=== PATIENT | male | born 1970 | race Caucasian/White ===

== ENCOUNTER 2016-05-26 16:19 | Emergency (ER) | payer OTHER ==
[~2016-05-26] VITALS: Ht 167.6 cm; Wt 86.0 kg
[~2016-05-26 16:19] MED LIST: ASPI81TA3 PO; PANT40TA4 PO; PHEN-538 PO
[2016-05-26 16:23] VITALS: Ht 167.6 cm; Wt 86.0 kg
[2016-05-26] MEDS ORDERED: SOD CHLORIDE 0.9% 1,000 ML IV STA (16:37)
[2016-05-26] MEDS ORDERED: morphine 2 MG INJ IV ONE (17:00)
[2016-05-26] MEDS ORDERED: ONDANSETRON 4 MG INJ IV STA (17:01)
[2016-05-26 17:05] LABS: BASOPHILS % 0.3 % (0.0-2.0); EOSINOPHILS % 0.3 % (0.0-7.0); HEMATOCRIT 44.3 % (42.0-52.0); HEMOGLOBIN 15.3 g/dl (14.0-18.0); LYMPHOCYTES # 1.3 10^3/ul (0.8-2.9); LYMPHOCYTES % 10.4 % (15.0-51.0); MEAN CORPUSCULAR HEMOGLOBIN 29.8 pg (29.0-33.0); MEAN CORPUSCULAR HGB CONC 34.5 g/dl (32.0-37.0); MEAN CORPUSCULAR VOLUME 86.3 fl (82.0-101.0); MEAN PLATELET VOLUME 7.2 fl (7.4-10.4); MONOCYTE # 0.6 10^3/ul (0.3-0.9); MONOCYTES % 4.8 % (0.0-11.0); NEUTROPHIL # 10.3 10^3/ul (1.6-7.5); NEUTROPHILS % 84.2 % (39.0-77.0); PLATELET COUNT 229 10^3/UL (140-440); RED BLOOD COUNT 5.13 10^6/ul (4.70-6.10); RED CELL DISTRIBUTION WIDTH 12.8 % (11.5-14.5); UNCORRECTED WBC 12.3 10^3/ul (4.8-10.8); WHITE BLOOD COUNT 12.3 10^3/ul (4.8-10.8)
[2016-05-26] MEDS ORDERED: ALPR0.5T6 PO (17:05)
[2016-05-26 17:12] LABS: CONDITION 1
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
--- NOTE | 2016-05-26 17:16 | RADRPT ---
PROCEDURE: XR left shoulder. CLINICAL INDICATION: Trauma TECHNIQUE: 3 views of the right shoulder were performed. COMPARISON: None. FINDINGS: No fracture or dislocation is seen. No lytic or blastic bony lesion is seen. No significant degene rative change. No definite soft tissue abnormality. IMPRESSION: No definite acute fracture or dislocation. RPTAT: HLBE Subha Mujica Physician Date Time Electronically viewed and signed by Subha Mujica Physician on 05/26/2016 17:15 LE/
--- NOTE | 2016-05-26 17:33 | RADRPT ---
PROCEDURE: CT Head without. CLINICAL INDICATION: Trauma. TECHNIQUE: The study was performed utilizing a multi-slice, multidetector CT scanner. Direct spira l 1 mm axial sections were obtained through the head without the use of intravenous contrast materia l. Coronal and sagittal reformations were obtained. The images were reviewed on a PACS workstation. RADIATION DOSE: CTDIvol: 44.4 mGyDLP: 720.2 mGy-cm COMPARISON: No prior studies are available for comparison. FINDINGS: There is no intracranial hemorrhage, extra-axial fluid collection, mass lesion, midline shift or hyd rocephalus. The ventricles, sulci and cisterns are within normal limits. The white matter is unrem arkable. The mullen-white matter differentiation is preserved. The basal cisterns are patent. The m idline structures are intact. The orbits, calvarium and extracranial soft tissues are normal in liz earance. The visualized paranasal sinuses, mastoid air cells and middle ear cavities are normally ae rated. There is mild prominence of the cisterna magna, normal variant. No definite arachnoid cyst i s seen. There is pneumatization bilateral petrous apices without evidence inflammatory changes, nor mal variant. IMPRESSION: 1. No acute intracranial abnormality. No intracranial hemorrhage, extra-axial fluid collection, ma ss lesion or hydrocephalous. RPTAT: DD .Thong Schultz MD, MD Date Time Electronically viewed and signed by .Thong Schultz MD, MD on 05/26/2016 17:33 .S/
[2016-05-26 17:36] LABS: POTASSIUM 4.1 mmol/L (3.5-5.1)
[2016-05-26 17:42] LABS: CALCIUM 9.5 mg/dl (8.4-10.2); CREATININE 0.61 mg/dl (0.61-1.24)
--- NOTE | 2016-05-26 17:42 | RADRPT ---
PROCEDURE: CT facial bones CLINICAL INDICATION: Trauma, pain TECHNIQUE: Multiphase CT scan of the face was performed in the axial plane. Coronal and sagittal re-formations were performed. The calculated radiation dose measures 527 mGy centimeters. The CTDI m easures 29 mGy COMPARISON: None FINDINGS: The mandible is identified demonstrating no evidence of fracture or bony dysplasia. There is no rudy dence of adjacent soft tissue swelling. The mid face and bony orbits demonstrate no evidence of acute fracture. Evaluation of the orbits de monstrates the globes to be normal in their size, shape, and attenuation bilaterally. No definite i ntra or extraconal soft tissue masses are seen. The optic nerve and nerve sheath complexes bilatera lly appear unremarkable. 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 There is left premaxillary soft tissue swelling. IMPRESSION: 1. No visualized facial fracture. 2. Chronic sinus disease including opacification of the right sphenoid sinus. RPTAT: HBST .Charles Robles MD, MD Date Time Electronically viewed and signed by .Charles Robles MD, on 05/26/2016 17:42 .T/
--- NOTE | 2016-05-26 17:51 | RADRPT ---
PROCEDURE: CT Cervical Spine without contrast. CLINICAL INDICATION: Trauma, pain TECHNIQUE: Multiple axial cuts through the cervical spine with coronal and sagittal reformats were obtained without contrast. The calculated radiation dose measures 446 mGy centimeters. The CTDI shasta sures 21 mGy COMPARISON: No prior studies are available for comparison. FINDINGS: There is a normal cervical lordosis. There is no evidence of subluxation. There is normal height of the vertebral bodies. The intervertebral disc spaces appear normal. There is no bone destruction o r sclerosis. There is no dislocation or fracture. The atlantoaxial articulation appears normal. There is normal craniocervical alignment. C2-3: There is no gross disk abnormality. There is no significant facet hypertrophy. There is no c entral canal or neural foraminal stenosis. C3-4: There is no gross disk abnormality. There is no significant facet hypertrophy. There is no c entral canal or neural foraminal stenosis. C4-5: There is a minimal broad-based disk protrusion. There is no significant facet hypertrophy. T here is no central canal or neural foraminal stenosis. C5-6: There is no gross disk abnormality. There is no significant facet hypertrophy. There is no c entral canal or neural foraminal stenosis. C6-7: There is no gross disk abnormality. There is no facet hypertrophy. There is no central can al or neural foraminal stenosis.. C7-T1: There is no gross disk abnormality. There is mild left facet hypertrophy.. There is no bony central canal stenosis. There is minimal left foraminal stenosis. There is no right foraminal allyson nosis. There is no abnormal paravertebral soft tissue mass. There is scattered small gas within the right u pper neck soft tissues, which may be intravenous. IMPRESSION: 1. No visualized fracture or dislocation. 2. Minimal appearing broad-based disk protrusion at C4-C5. Mild left facet hypertrophy and minimal left foraminal stenosis at C7-T1. 3. Punctate scattered gas through the right upper neck soft tissues, which may be intravenous/iatro genic. RPTAT: HBST .Charles Robles MD, MD Date Time Electronically viewed and signed by .Charles Robles MD, on 05/26/2016 17:51 .T/
[2016-05-26] MEDS ORDERED: morphine 4 MG/ML VIAL IV STA (18:01)
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
[2016-05-26] MEDS ORDERED: HYDR-906 PO (18:09)
[2016-05-26] MEDS ORDERED: IBUP800T25 PO (18:09)
[2016-05-26 19:18] VITALS: BP 125/83; PULSE 61; RESP 20; TEMP 98.6
== END 2016-05-26 19:15 | disposition home or self-care (01) ==
LOC: E/R 16:19
DX: S40.012A Contusion of left shoulder, initial encounter (principal); W13.2XXA Fall from, out of or through roof, initial encounter; Y92.009 Unspecified place in unspecified non-institutional (private) residence as the place of occurrence of the external cause; Z87.891 Personal history of nicotine dependence; Z79.82 Long term (current) use of aspirin
CPT/HCPCS: 70450; 70486; 71010; 72125; 73030; 80048; 85025; 96374; 96375; 96376; J2270; J2405; J7030; Z7502

== ENCOUNTER 2016-07-22 23:23 | Emergency (ER) | payer OTHER ==
[~2016-07-22] VITALS: Ht 167.6 cm; Wt 87.5 kg
[~2016-07-22 23:23] MED LIST changes: +ALPR0.5T6 PO; -ASPI81TA3 PO; +HYDR-906 PO; +IBUP800T25 PO; -PANT40TA4 PO; -PHEN-538 PO
[2016-07-22 23:26] VITALS: Ht 167.6 cm; Wt 87.5 kg
[2016-07-23] MEDS ORDERED: IBUPROFEN 600 MG TAB PO ONE (02:30)
[2016-07-23] MEDS ORDERED: PENICILLIN G BENZ 1.2 MIL UNIT SYG IM ONE (02:30)
[2016-07-23] MEDS ORDERED: ACETAMINOPHEN 325 MG TAB PO ONE (02:30)
[2016-07-23] MEDS ORDERED: ACET325T33 PO (02:35)
[2016-07-23 04:30] VITALS: BP 122/68; PULSE 79; RESP 18; TEMP 99
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
== END 2016-07-23 04:31 | disposition home or self-care (01) ==
LOC: FTE 23:23
DX: J03.90 Acute tonsillitis, unspecified (principal); R50.9 Fever, unspecified
CPT/HCPCS: 96372; J0561; Z7502; Z7610

== ENCOUNTER 2016-11-07 18:43 | Emergency (ER) | payer OTHER ==
[~2016-11-07] VITALS: Ht 170.2 cm; Wt 87.0 kg
[~2016-11-07 18:43] MED LIST changes: +ACET325T33 PO
[2016-11-07 18:57] VITALS: Ht 170.2 cm; Wt 87.0 kg
[2016-11-07] MEDS ORDERED: DIPHTH/TET/ACEL PERTUSS (ADULT) 0.5 ML VIAL IM* ONE (20:00)
--- NOTE | 2016-11-07 21:10 | RADRPT ---
PROCEDURE: XR Foot. CLINICAL INDICATION: Puncture wound at the plantar aspect of right forefoot. TECHNIQUE: AP, lateral and oblique views of the right foot was obtained. The images were reviewed on a PACS workstation. COMPARISON: None. FINDINGS: No evident retained radiopaque foreign material in the soft tissues of the right foot. No acute fra cture. IMPRESSION: No evident retained radiopaque foreign material in the soft tissues of the right foot. RPTAT: UU Physician Josefa Date Time Electronically viewed and signed by Physician Josefa on 11/07/2016 21:10 RS/
[2016-11-07] MEDS ORDERED: IBUP-1542 PO (21:22)
[2016-11-07] MEDS ORDERED: CIPR500T4 PO (21:22)
[2016-11-07] MEDS ORDERED: DOXY100T20 PO (21:22)
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
== END 2016-11-07 21:40 | disposition home or self-care (01) ==
LOC: FTE 18:43
DX: S91.331A Puncture wound without foreign body, right foot, initial encounter (principal); F17.210 Nicotine dependence, cigarettes, uncomplicated; W45.0XXA Nail entering through skin, initial encounter; Y92.9 Unspecified place or not applicable; Z23 Encounter for immunization
CPT/HCPCS: 73630; 90471; 90715; Z7502

== ENCOUNTER 2017-01-05 00:07 | Emergency (ER) | payer OTHER ==
[~2017-01-05] VITALS: Ht 170.2 cm; Wt 91.5 kg
[~2017-01-05 00:07] MED LIST changes: +CIPR500T4 PO; +DOXY100T20 PO; +IBUP-1542 PO
[2017-01-05 00:14] VITALS: Ht 170.2 cm; Wt 91.5 kg
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
[2017-01-05] MEDS ORDERED: IBUPROFEN 200 MG TAB PO ONE (01:00)
[2017-01-05] MEDS ORDERED: ONDANSETRON 4 MG INJ IV STA (01:22)
[2017-01-05] MEDS ORDERED: KETOROLAC 15 MG INJ IM STA (01:22)
[2017-01-05] MEDS ORDERED: SOD CHLORIDE 0.9% 1,000 ML IV ONE (01:30)
[2017-01-05] MEDS ORDERED: KETOROLAC 15 MG INJ IV STA (01:53)
[2017-01-05 02:27] LABS: BASOPHILS % 0.3 % (0.0-2.0); EOSINOPHILS # 0.1 10^3/ul (0.0-0.5); EOSINOPHILS % 1.6 % (0.0-7.0); HEMATOCRIT 40.9 % (42.0-52.0); LYMPHOCYTES # 1.9 10^3/ul (0.8-2.9); LYMPHOCYTES % 21.4 % (15.0-51.0); MEAN CORPUSCULAR HEMOGLOBIN 29.8 pg (29.0-33.0); MEAN CORPUSCULAR HGB CONC 34.2 g/dl (32.0-37.0); MONOCYTE # 0.9 10^3/ul (0.3-0.9); MONOCYTES % 10.6 % (0.0-11.0); NEUTROPHILS % 65.8 % (39.0-77.0); PLATELET COUNT 167 10^3/UL (140-415); RED CELL DISTRIBUTION WIDTH 12.7 % (11.5-14.5); WHITE BLOOD COUNT 8.9 10^3/ul (4.8-10.8)
[2017-01-05 02:34] LABS: ADD UMIC YES; UR ASCORBIC ACID NEGATIVE (NEGATIVE); UR BILIRUBIN (Dip) NEGATIVE (NEGATIVE); UR BLOOD (Dip) 1+ mg/dL (NEGATIVE); UR CLARITY CLEAR (CLEAR); UR COLOR STRAW (YELLOW); UR GLUCOSE (Dip) NEGATIVE (NEGATIVE); UR KETONES (Dip) NEGATIVE (NEGATIVE); UR LEUKOCYTE ESTERASE (Dip) NEGATIVE Leu/ul (NEGATIVE); UR NITRITE (Dip) NEGATIVE (NEGATIVE); UR RBC 0 /HPF (0-5); UR SPECIFIC GRAVITY (Dip) 1.004 (1.003-1.030); UR TOTAL PROTEIN (Dip) NEGATIVE (NEGATIVE); UR UROBILINOGEN (Dip) NEGATIVE (NEGATIVE)
[2017-01-05 02:37] LABS: BENZODIAZEPINES Negative (NEGATIVE); CANNABINOIDS Negative (NEGATIVE); COCAINE Negative (NEGATIVE); OPIATES Negative (NEGATIVE)
[2017-01-05 02:46] LABS: ALBUMIN 4.2 g/dl (3.3-4.9); ALBUMIN/GLOBULIN RATIO 1.23; BILIRUBIN,INDIRECT 0.4 mg/dl (0-1.1); BILIRUBIN,TOTAL 0.4 mg/dl (0.2-1.3); CALCIUM 8.9 mg/dl (8.4-10.2); CREATININE 0.62 mg/dl (0.61-1.24); POTASSIUM 3.8 mmol/L (3.5-5.1); TOTAL PROTEIN 7.6 g/dl (6.1-8.1)
[2017-01-05] MEDS ORDERED: IBUP400T22 PO (02:52)
[2017-01-05] MEDS ORDERED: PHEN177S43 MT (02:52)
[2017-01-05 03:09] LABS: BARBITURATES Negative (NEGATIVE)
== END 2017-01-05 03:02 | disposition home or self-care (01) ==
LOC: FTE 00:07
DX: J06.9 Acute upper respiratory infection, unspecified (principal); R11.0 Nausea; Z87.891 Personal history of nicotine dependence
CPT/HCPCS: 36415; 80053; 80307; 81001; 83690; 85025; 96374; 96375; J1885; J2405; J7030; Z7502; Z7610

== ENCOUNTER 2017-03-09 13:12 | Emergency (ER) | payer SELFPAY ==
[~2017-03-09] VITALS: Ht 177.8 cm; Wt 87.5 kg
[~2017-03-09 13:12] MED LIST changes: +IBUP400T22 PO; +PHEN177S43 MT
[2017-03-09 13:22] VITALS: Ht 177.8 cm; Wt 87.5 kg
== END 2017-03-09 17:45 | disposition left against medical advice (07) ==
LOC: E/R 13:12
DX: Z53.21 Procedure and treatment not carried out due to patient leaving prior to being seen by health care provider (principal)

== ENCOUNTER 2017-05-09 21:02 | Emergency (ER) | payer OTHER ==
[~2017-05-09] VITALS: Ht 172.7 cm; Wt 86.7 kg
[2017-05-09 21:19] VITALS: Ht 172.7 cm; Wt 86.7 kg
[2017-05-09] MEDS ORDERED: LIDOCAINE/MYLANTA 40 ML BTL PO STA (22:06)
[2017-05-09] MEDS ORDERED: ASPIRIN 325 MG TAB PO STA (22:06)
[2017-05-09 22:38] LABS: BASOPHIL # 0.1 10^3/ul (0.0-0.1); BASOPHILS % 0.5 % (0.0-2.0); EOSINOPHILS # 0.1 10^3/ul (0.0-0.5); EOSINOPHILS % 0.7 % (0.0-7.0); HEMATOCRIT 42.2 % (42.0-52.0); HEMOGLOBIN 14.4 g/dl (14.0-18.0); LYMPHOCYTES # 2.4 10^3/ul (0.8-2.9); LYMPHOCYTES % 23.7 % (15.0-51.0); MEAN CORPUSCULAR HEMOGLOBIN 29.6 pg (29.0-33.0); MEAN CORPUSCULAR HGB CONC 34.1 g/dl (32.0-37.0); MEAN CORPUSCULAR VOLUME 86.7 fl (82.0-101.0); MEAN PLATELET VOLUME 8.8 fl (7.4-10.4); MONOCYTE # 0.8 10^3/ul (0.3-0.9); MONOCYTES % 8.2 % (0.0-11.0); NEUTROPHIL # 6.8 10^3/ul (1.6-7.5); NEUTROPHILS % 66.6 % (39.0-77.0); PLATELET COUNT 216 10^3/UL (140-415); RED BLOOD COUNT 4.87 10^6/ul (4.70-6.10); RED CELL DISTRIBUTION WIDTH 12.7 % (11.5-14.5); WHITE BLOOD COUNT 10.2 10^3/ul (4.8-10.8)
[2017-05-09] MEDS ORDERED: ONDANSETRON 4 MG INJ IV ONE (23:00)
[2017-05-09 23:01] LABS: ANION GAP 16 (8-16); BLOOD UREA NITROGEN 10 mg/dl (7-20); CARBON DIOXIDE 25 mmol/L (21-31); CHLORIDE 103 mmol/L (97-110); CREATININE 0.65 mg/dl (0.61-1.24); GLUCOSE 103 mg/dl (70-220); POTASSIUM 3.7 mmol/L (3.5-5.1); SODIUM 140 mmol/L (135-144)
--- NOTE | 2017-05-09 23:05 | RADRPT ---
PROCEDURE: CHEST - 1 VIEW CLINICAL INDICATION: 47-year-old male with chest pain. TECHNIQUE: A single frontal AP semi-erect portable view of the chest was performed. The images we re reviewed on a PACS workstation. COMPARISON: None. FINDINGS: The cardiomediastinal silhouette has a normal appearance. There is no evidence for an infiltrate. There is no evidence for congestive heart failure. There is no evidence for pneumothorax. The osseou s structures are intact. IMPRESSION: No evidence for active cardiopulmonary disease. .Hiram Marshall MD, MD Date Time Electronically viewed and signed by .Hiram Marshall MD, MD on 05/09/2017 23:05 .Rossi/
--- NOTE | 2017-05-09 23:07 | ERD ---
ER Documentation Chief Complaint Chief Complaint mid CP this am. +n/v s/p ETOH intoxication. Denies SOB. HPI This 47-year-old male presents with chest pain across the entire center of his chest described as a burning pain. He had it since he vomited this morning one time which was nonbloody and nonbilious. Yesterday, for Steven, he was drinking alcohol, smoking curettes and used some cocaine. He has not partied like this since he was younger. He does feel short of breath sometimes today. ROS All systems reviewed and are negative except as per history of present illness. Medications Home Meds Active Scripts Ranitidine Hcl* (Zantac*) 150 Mg Tablet, 150 MG PO BID, #60 TAB Prov:JEANETTE WAHL DO 05/10/17 Allergies Allergies: Coded Allergies: No Known Allergy (Unverified , 05/09/17) Physical Exam Vitals Vital Signs Date Time Temp Pulse Resp B/P Pulse Ox O2 Delivery O2 Flow Rate FiO2 05/09/17 21:19 98.9 65 18 152/89 98 Physical Exam Const: [] Mild distress, appears uncomfortable Head: Atraumatic Eyes: Normal Conjunctiva ENT: Normal External Ears, Nose and Mouth. Moist mucous membranes of the mouth. Neck: Full range of motion..~ No JVD Resp: Clear to auscultation bilaterally Cardio: Regular rate and rhythm, no murmurs Abd: Soft, non tender, non distended. Normal bowel sounds Skin: No petechiae or rashes Back: No midline or flank tenderness Ext: No cyanosis, or edema Neur: Awake and alert and oriented 3, no focal deficits Psych: Normal Mood and Affect Result Diagram: 05/09/17 2221 05/09/17 2221 Results 24 hrs Laboratory Tests Test 05/09/17 22:21 White Blood Count 10.210^3/ul Red Blood Count 4.8710^6/ul Hemoglobin 14.4g/dl Hematocrit 42.2% Mean Corpuscular Volume 86.7fl Mean Corpuscular Hemoglobin 29.6pg Mean Corpuscular Hemoglobin Concent 34.1g/dl Red Cell Distribution Width 12.7% Platelet Count 05507^3/UL Mean Platelet Volume 8.8fl Neutrophils % 66.6% Lymphocytes % 23.7% Monocytes % 8.2% Eosinophils % 0.7% Basophils % 0.5% Nucleated Red Blood Cells % 0.0/100WBC Neutrophils # 6.810^3/ul Lymphocytes # 2.410^3/ul Monocytes # 0.810^3/ul Eosinophils # 0.110^3/ul Basophils # 0.110^3/ul Nucleated Red Blood Cells # 0.010^3/ul Sodium Level 140mmol/L Potassium Level 3.7mmol/L Chloride Level 103mmol/L Carbon Dioxide Level 25mmol/L Anion Gap 16 Blood Urea Nitrogen 10mg/dl Creatinine 0.65mg/dl Glucose Level 103mg/dl Calcium Level 9.0mg/dl Troponin I < 0.012ng/ml B-Type Natriuretic Peptide 20PG/ML Current Medications Medications (Trade) Dose Ordered Sig/Clemente Route PRN Reason Start Time Stop Time Status Last Admin Dose Admin Aspirin (Aspirin) 325 mg ONCE STAT PO 05/09/17 22:06 05/09/17 22:07 DC 05/09/17 22:14 Miscellaneous Medication (Gi Cocktail (2)) 40 ml ONCE STAT PO 05/09/17 22:06 05/09/17 22:07 DC 05/09/17 22:14 Ondansetron HCl (Zofran Inj) 4 mg ONCE ONCE IV 05/09/17 23:00 05/09/17 23:02 DC 05/09/17 23:16 Procedures/MDM Burning chest pain for 1 day following drinking, tobacco use and cocaine use which is an abnormal for this patient. Patient is at low risk for acute coronary syndrome and complete workup was performed I believe that is very unlikely the patient is having acute coronary syndrome. He was given an aspirin as well as a GI cocktail which relieved his symptoms. Troponin negative after 1 day of chest pain. I am going to discharge him with Zantac and I am also recommending that he obtain echocardiogram as an outpatient for further workup of his heart. Is agreeable to these instructions and we discussed the substance abuse at the bedside and patient does not intend to do this again. Return precautions forger helper interpretation: Mild sinus bradycardia without arrhythmia Chest x-ray interpretation: I see no acute process. No wide mediastinum, pneumothorax, no infiltrates, no palmar edema, no fractures Sinus bradycardia rate of 54, right axis deviation, possible LVH, no ST or T- wave changes concerning for acute ischemia, normal intervals. Departure Diagnosis: Primary Impression: Chest pain Additional Impression: Acid reflux Condition: Stable JEANETTE WAHL DO May 09, 2017 23:07
[2017-05-09 23:12] LABS: B-TYPE NATRIURETIC PEPTIDE 20 PG/ML (0-125)
[2017-05-09 23:16] LABS: TROPONIN-I < 0.012 ng/ml (0.00-0.12)
[2017-05-10] MEDS ORDERED: RANI150T9 PO (00:01)
[2017-05-10 00:22] VITALS: BP 115/74; PULSE 51; RESP 18
== END 2017-05-10 00:43 | disposition home or self-care (01) ==
LOC: E/R 21:02 → MERGE 21:02 → E/R 05-10 00:43
DX: K21.9 Gastro-esophageal reflux disease without esophagitis (principal); F17.210 Nicotine dependence, cigarettes, uncomplicated; R06.02 Shortness of breath
CPT/HCPCS: 36415; 71010; 80048; 83880; 84484; 85025; 93005; 96374; J2405; Z7502; Z7610

== ENCOUNTER 2017-06-07 15:08 | Emergency (ER) | END 2017-06-07 18:02 | disposition home or self-care (01) ==